=== PATIENT | female | born 1960 | race Caucasian/White ===

== ENCOUNTER → 2020-04-25 | Outpatient (CLI) | payer OTHER | LOC: US 14:14 | DX: E04.1 Nontoxic single thyroid nodule (principal) | CPT/HCPCS: 76536 ==

== ENCOUNTER → 2021-02-17 | Outpatient (CLI) | payer OTHER | LOC: MAMO 08:30 | DX: Z12.31 Encounter for screening mammogram for malignant neoplasm of breast (principal) | CPT/HCPCS: 77063; 77067 ==

== ENCOUNTER → 2021-04-23 | Outpatient (CLI) | payer OTHER | LOC: KOH-I 10:15 | DX: E04.2 Nontoxic multinodular goiter (principal); E07.89 Other specified disorders of thyroid; E55.9 Vitamin D deficiency, unspecified | CPT/HCPCS: 76536 ==